=== PATIENT | female | born 1980 | race Caucasian/White ===

== ENCOUNTER 2022-05-03 10:11 | Outpatient (CLI) | payer OTHER, SELFPAY ==
--- NOTE | 2022-05-03 11:00 | NEURO_ITS ---
Impression: # Complains of tingling and numbness of upper extremities. # Normal nerve conduction study. # No Carpal Tunnel Syndrome or ulnar neuropathy. # Normal needle/EMG exam. # Clinical correlation recommended; Possibility of higher involvement cannot be ruled out. Motor Nerve Conduction Upper Extremities Median Nerve Conduction Velocity (m/sec) Terminal Latency (msec) Response Voltage(mV) Elbow-Wrist Wrist Elbow Wrist Right 60 2.6 4 6 Left 62 3.1 1 2 Ulnar Nerve Conduction Velocity (m/sec) Terminal Latency (msec) Response Voltage(mV) Above Elbow Below Elbow Wrist Above Elbow Below Elbow Wrist Right 61 2.3 6 6 Left 62 2.5 5 5 F-Wave Latency Median (ms) Ulnar (ms) Right 26.9 26.9 Left 26.3 26.8 Sensory Nerve Conduction Upper Extremities Median Nerve Stimulation Terminal Latency (msec) Wrist/Digit Response Voltage (uV) Wrist Right 2.7/2.6 81/40 Left 2.5/2.5 66/79 Ulnar Nerve Stimulation Terminal Latency (msec) Wrist/Digit Response Voltage (uV) Wrist Right 2.2 16 Left 2.3 66 Radial Nerve Terminal Latency (msec) Response Voltage(mV) Right 2.3 27 Left 1.8 31 Left Right Muscles Examined Fibrillation Fasciculation Scarcity Voltage Duration Left Right Left Right Left Right Left Right Left Right X X Deltoid X X Biceps X X Brachioradialis X X Triceps X X Pronator Teres X X Ext Indicis X X Ext Digitorum X X Abd Poll Brev X X 1st Dorsal Interosseus X X Abd Dig Min MTDD
== END 2022-05-03 10:12 | disposition home or self-care (01) ==
LOC: ANHNEURO 10:14
PROVIDERS: Visit Provider Family Medicine
DX: R20.0 Anesthesia of skin (principal); R20.2 Paresthesia of skin
CPT/HCPCS: 95886; 95911